=== PATIENT | male | born 1995 | race African-American/Black ===

== ENCOUNTER 2024-12-16 09:20 | Emergency (ER) | payer SELFPAY ==
[~2024-12-16] VITALS: Ht 167.6 cm; Wt 59.0 kg
[2024-12-16 09:26] VITALS: O2SAT 99
[2024-12-16 09:28] VITALS: BP 112/54; PULSE 71; RESP 14; TEMP 36.4
[2024-12-16] MEDS ORDERED: CLOT15CR27 TP (10:44)
[2024-12-16] MEDS ORDERED: DIPH25CA83 MT (10:44)
== END 2024-12-16 10:51 | disposition home or self-care (01) ==
LOC: ER 09:20
DX: L42 Pityriasis rosea (principal)
CPT/HCPCS: 99282